=== PATIENT | male | born 1975 | race Two or more races ===

== ENCOUNTER 2018-08-17 05:30 | Inpatient (IN) | payer OTHER ==
[~2018-08-17] VITALS: Ht 177.8 cm; Wt 90.9 kg
[2018-08-17] MEDS ORDERED: ENOXAPARIN SOD 40 MG/0.4 ML SYRINGE SC ONE (07:00)
[2018-08-17] MEDS ORDERED: PIPERACILLIN-TAZOB 3.375GM 100 ML IV ONE (07:00)
[2018-08-17] MEDS ORDERED: SUCCINYLCHOLINE CHLORIDE 20 MG/ML 10ML VIAL IV ONE (07:19)
[2018-08-17] MEDS ORDERED: LIDOCAINE 1% HCL (LOCAL ANESTH.) INJ 20ML MDV ONE ×2 (07:19→07:46)
[2018-08-17] MEDS ORDERED: ROCURONIUM 10MG/ML 10ML VIAL IV ONE (07:25)
[2018-08-17] MEDS ORDERED: MIDAZOLAM HCL 1MG/1ML-2 ML VIAL ONE (07:25)
[2018-08-17] MEDS ORDERED: PROPOFOL 10 MG/ML 20 ML IV ONE (07:25)
[2018-08-17] MEDS ORDERED: fentaNYL CITRATE 100 MCG/2 ML VL ONE (07:41)
[2018-08-17] MEDS ORDERED: LIDOCAINE W/ EPINEPHRINE 1 % INJ 30ML ONE (07:46)
[2018-08-17] MEDS ORDERED: BUPIVACAINE HCL 50 ML ONE (07:47)
[2018-08-17] MEDS ORDERED: HYDROmorphone HCL 2 MG/ML VL IV PRN ×2 (08:00)
[2018-08-17] MEDS ORDERED: ONDANSETRON HCL 4 MG/2 ML VIAL IV ONE (08:00)
[2018-08-17] MEDS ORDERED: NALOXONE HCL 0.4 MG/ML VIAL IV PRN (08:00)
[2018-08-17] MEDS ORDERED: GELATIN 1 SPONGE SIZE 100 TOP ONE (08:23)
[2018-08-17] MEDS ORDERED: GELATIN 1 SPONGE SIZE 50 TOP ONE (08:23)
[2018-08-17] MEDS ORDERED: SENNA 8.6 MG TAB PO PRN (09:15)
[2018-08-17] MEDS: SODIUM CHLORIDE 0.9% 1,000 ML IV SCH ×2 (09:15→19:15)
[2018-08-17] MEDS ORDERED: ONDANSETRON HCL 4 MG/2 ML VIAL IV PRN (09:15)
[2018-08-17] MEDS ORDERED: MEPERIDINE HCL (25 MG/ML) 1ML VIAL ONE (09:35)
[2018-08-17] MEDS ORDERED: hydrALAZINE HCL 20 MG/ML VL IV PRN (09:45)
[2018-08-17] MEDS ORDERED: MEPERIDINE HCL (25 MG/ML) 1ML VIAL IV ONE (09:45)
[2018-08-17 10:24] LABS: Basophils # (auto) 0.1 uL; Basophils % (auto) 1.9 % (0.0-2.0); Eosinophils # (auto) 0.9 uL; Eosinophils % (auto) 13.6 % (0.0-7.0); Hemoglobin 16.4 g/dL (13.5-17.5); Lymphocytes # (auto) 2.1 uL; Lymphocytes % (auto) 31.1 % (10.0-50.0); Mean Corpuscular Hemoglobin 28.4 pg (28.0-32.0); Mean Corpuscular Hgb Conc. 34.1 g/dL (32.0-36.0); Mean Corpuscular Volume 83.4 fL (80.0-100.0); Monocytes # (auto) 0.4 uL; Monocytes % (auto) 6.2 % (0.0-12.0); Neutrophils # (auto) 3.2 uL; Neutrophils % (auto) 47.2 % (37.0-80.0); Platelet Count (auto) 194 10^3/uL (140-450); Red Blood Cells 5.76 10^6/uL (4.5-5.90); Red Cell Distribution Width 13.9 % (11.8-14.3); White Blood Cell 6.9 10^3/uL (4.4-10.8)
[2018-08-17 11:38] VITALS: BP 154/89
[2018-08-17] MEDS: PANTOPRAZOLE 40 MG TAB PO SCH (11:38)
[2018-08-17] MEDS: MILK OF MAGNESIA 30ML SUSP PO SCH (11:39)
[2018-08-17] MEDS: OXYCODONE W/ ACETAMINOPHEN 5/325MG TABLET PO PRN ×3 (11:39→22:39)
[2018-08-17 13:00] VITALS: BP 154/89
[2018-08-17] MEDS: DOCUSATE SOD 100 MG CAP PO SCH ×2 (14:26→21:42)
[2018-08-17] MEDS: MORPHINE SULFATE 4 MG/ML SYR/VIAL IV PRN ×3 (14:38→21:43)
[2018-08-17 17:00] VITALS: BP 135/82
[2018-08-17 20:00] VITALS: BP 127/73
[2018-08-17 22:00] VITALS: BP 127/73
[2018-08-18] MEDS: MORPHINE SULFATE 4 MG/ML SYR/VIAL IV PRN ×6 (00:25→23:59)
[2018-08-18 05:00] VITALS: BP 142/92
[2018-08-18] MEDS: SODIUM CHLORIDE 0.9% 1,000 ML IV SCH ×2 (05:15→15:15)
[2018-08-18] MEDS: DOCUSATE SOD 100 MG CAP PO SCH ×3 (06:11→21:40)
[2018-08-18] MEDS: OXYCODONE W/ ACETAMINOPHEN 5/325MG TABLET PO PRN ×4 (06:12→18:40)
[2018-08-18 07:44] LABS: Basophils # (auto) 0.1 uL; Eosinophils # (auto) 0.7 uL; Eosinophils % (auto) 6.6 % (0.0-7.0); Hematocrit 44.3 % (41.0-53.0); Hemoglobin 15.7 g/dL (13.5-17.5); Lymphocytes # (auto) 2.2 uL; Lymphocytes % (auto) 19.4 % (10.0-50.0); Mean Corpuscular Hemoglobin 29.5 pg (28.0-32.0); Mean Corpuscular Hgb Conc. 35.5 g/dL (32.0-36.0); Monocytes % (auto) 9.1 % (0.0-12.0); Neutrophils # (auto) 7.1 uL; Neutrophils % (auto) 63.9 % (37.0-80.0); Nucleated Red Blood Cells % 0.1 %; Platelet Count (auto) 192 10^3/uL (140-450); Red Blood Cells 5.34 10^6/uL (4.5-5.90); Red Cell Distribution Width 13.7 % (11.8-14.3); White Blood Cell 11.1 10^3/uL (4.4-10.8)
[2018-08-18 09:00] VITALS: BP 120/78
[2018-08-18] MEDS: PANTOPRAZOLE 40 MG TAB PO SCH (10:07)
[2018-08-18] MEDS: MILK OF MAGNESIA 30ML SUSP PO SCH (10:07)
[2018-08-18 13:00] VITALS: BP 122/74
[2018-08-18 17:00] VITALS: BP 137/78
[2018-08-18 20:00] VITALS: BP 120/73
[2018-08-18 21:30] VITALS: BP 120/73
[2018-08-19] MEDS: SODIUM CHLORIDE 0.9% 1,000 ML IV SCH ×2 (01:15→11:15)
[2018-08-19] MEDS: MORPHINE SULFATE 4 MG/ML SYR/VIAL IV PRN ×2 (04:58→09:55)
[2018-08-19 05:00] VITALS: BP 129/68
[2018-08-19] MEDS: OXYCODONE W/ ACETAMINOPHEN 5/325MG TABLET PO PRN ×2 (05:46→12:00)
[2018-08-19] MEDS: DOCUSATE SOD 100 MG CAP PO SCH (05:46)
[2018-08-19 09:00] VITALS: BP 122/69
[2018-08-19] MEDS: MILK OF MAGNESIA 30ML SUSP PO SCH (09:55)
[2018-08-19] MEDS: PANTOPRAZOLE 40 MG TAB PO SCH (09:55)
[2018-08-19 13:04] VITALS: BP 110/72
[2018-08-19 15:11] VITALS: BP 110/72
== END 2018-08-19 15:30 | DRG 348 ==
LOC: SUR 05:30 → EEVIPCON 10:52 → EAST 10:52
PROVIDERS: ATTEND Internal Medicine
PROC: 06BY0ZC Excision of Hemorrhoidal Plexus, Open Approach (ICD-10-PCS; 2018-08-17)
PROC: 3E0T3BZ Introduction of Anesthetic Agent into Peripheral Nerves and Plexi, Percutaneous Approach (ICD-10-PCS; 2018-08-17)
PROC: 06BY0ZC Excision of Hemorrhoidal Plexus, Open Approach (ICD-10-PCS; principal; 2018-08-17 07:30)
DX: K64.2 Third degree hemorrhoids (principal); K62.5 Hemorrhage of anus and rectum; E78.00 Pure hypercholesterolemia, unspecified; H54.7 Unspecified visual loss; K64.4 Residual hemorrhoidal skin tags; I10 Essential (primary) hypertension; Z83.3 Family history of diabetes mellitus
CPT/HCPCS: 36415; 85025; G0378; J0330; J2001; J2250; J2405; J2543; J2704; J3490

== ENCOUNTER → 2019-08-25 | Day surgery (SDC) | payer OTHER ==
[~2019-08-25] VITALS: Ht 30.5 cm; Wt 0.5 kg
[~2019-08-25] MED LIST: BUPIVACAINE HCL 50 ML ONE; GLYCOPYRROLATE 0.2 MG/ML 1ML VIAL ONE; HEPARIN SODIUM (PORCINE) 5000 UNITS/ML 1ML VIAL ONE; HYDROmorphone HCL 2 MG/ML VL IV PRN; KETOROLAC TROMETH 30 MG/ML 1ML VIAL IV ONE; KETOROLAC TROMETH 60MG/2ML VIAL ONE; LACT10SO3 PO; LIDOCAINE 1% HCL (LOCAL ANESTH.) INJ 20ML MDV ONE; MEPERIDINE HCL (25 MG/ML) 1ML VIAL ONE; METOCLOPRAMIDE HCL 5MG/ml INJ 2ml VIAL IV PRN; MIDAZOLAM HCL 1MG/1ML-2 ML VIAL ONE; MORPHINE SULFATE 4 MG/ML SYR/VIAL IV PRN; NEOSTIGMINE 1 MG/ML INJ (10mg/10ML VIAL) ONE; ONDANSETRON HCL 4 MG/2 ML VIAL ONE; PROPOFOL 10 MG/ML 20 ML IV ONE; ROCURONIUM 10MG/ML 10ML VIAL IV ONE; SODIUM CHLORIDE LOCK 10 ML ONE; SUCCINYLCHOLINE CHLORIDE 20 MG/ML 10ML VIAL IV ONE; ceFAZolin 1GM/50ML 50 ML IV ONE; fentaNYL CITRATE 100 MCG/2 ML VL IV PRN; fentaNYL CITRATE 100 MCG/2 ML VL ONE
[2019-08-25 09:13] VITALS: BP 134/88
== END | disposition home or self-care (01) ==
LOC: SUR 05:45
DX: K42.0 Umbilical hernia with obstruction, without gangrene (principal); K43.9 Ventral hernia without obstruction or gangrene; E78.5 Hyperlipidemia, unspecified
CPT/HCPCS: 49587; C1781; J0330; J0690; J1644; J1885; J2001; J2175; J2250; J2405; J2704; J3010; J3490